=== PATIENT | female | born 1985 | race Caucasian/White ===

== ENCOUNTER 2021-04-08 17:07 | Emergency (ER) | payer MEDICAID ==
[~2021-04-08] VITALS: Ht 165.1 cm; Wt 53.5 kg
[2021-04-08 17:58] LABS: MEAN CORPUSCULAR HEMOGLOBIN 30.6 uug (24.7-32.8); MEAN CORPUSCULAR VOLUME 90.8 fL (75.5-95.3); PLATELET COUNT (AUTO) 155 K/uL (179-408)
--- NOTE | 2021-04-08 18:06 | NUR ---
Patient was seen by . Labs drawn by other RN and sent to lab
--- NOTE | 2021-04-08 20:26 | NUR ---
Patient discharged to home in stable condition. Written and verbal after care instructions given. Patient verbalizes understanding of instructions. Stressed follow up or return to ER for worsening s/s. Patient ambulated fr the ER with steady gait. All belongings with patient.
[2021-04-08 20:27] VITALS: BP 112/77
== END 2021-04-08 20:28 | disposition home or self-care (01) ==
LOC: ER 17:09
DX: N93.8 Other specified abnormal uterine and vaginal bleeding (principal); N88.8 Other specified noninflammatory disorders of cervix uteri; D69.6 Thrombocytopenia, unspecified
CPT/HCPCS: 36415; 76856; 85025; 86850; 86900; 86901; A4663

== ENCOUNTER 2022-08-04 12:42 | Emergency (ER) | payer MEDICAID ==
[~2022-08-04] VITALS: Ht 162.6 cm; Wt 52.6 kg
--- NOTE | 2022-08-04 12:56 | NUR ---
AT BEDSIDE FOR MSE
[2022-08-04 13:24] LABS: *BILIRUBIN,URIN NEGATIVE (NEGATIVE); *BLOOD, URINE 2+ (NEGATIVE); *CLARITY,URINE CLEAR (CLEAR); *COLOR,URINE YELLOW (YELLOW); *KETONES,URINE NEGATIVE (NEGATIVE); *UROBILINOGEN,URINE 0.2 E.U./dl (NORMAL); LEUKOCYTE ESTERASE ,URINE NEGATIVE (NEGATIVE); NITRITE, URINE NEGATIVE (NEGATIVE); UGLUCOSE NEGATIVE (NEGATIVE)
[2022-08-04 13:35] LABS: BACTERIA,URINE FEW /HPF (NONE SEEN); MUCUS,URINE FEW /LPF (0-FEW); SQUAMOUS EPITHELIAL CELL,UR FEW /HPF (NONE SEEN); WBC,URINE 0-3 /HPF (0-3)
[2022-08-04 13:41] LABS: *URINE HCG, QUAL NEGATIVE (NEGATIVE)
--- NOTE | 2022-08-04 14:24 | NUR ---
Patient discharged to home in stable condition. Written and verbal after care instructions given. Patient verbalizes understanding of instructions. Stressed follow up or return to ER for worsening s/s.
== END 2022-08-04 14:24 | disposition home or self-care (01) ==
LOC: ER 12:42
DX: J10.1 Influenza due to other identified influenza virus with other respiratory manifestations (principal); Z20.822 Contact with and (suspected) exposure to COVID-19; Z88.8 Allergy status to other drugs, medicaments and biological substances
CPT/HCPCS: 71045; 84703; A4663

== ENCOUNTER 2023-03-13 20:41 | Emergency (ER) | payer MEDICAID ==
[~2023-03-13] VITALS: Ht 162.6 cm; Wt 54.4 kg
[2023-03-13] MEDS ORDERED: ACETAMINOPHEN ES 500 MG TABLET PO ONE (21:15)
[2023-03-13] MEDS ORDERED: CYCL10TA9 PO (21:16)
[2023-03-13] MEDS ORDERED: HYDR-3980 PO (21:16)
[2023-03-13] MEDS ORDERED: ONDA4TAB5 PO (21:16)
[2023-03-13] MEDS ORDERED: ACETAMINOPHEN ES 500 MG TABLET ONE (21:16)
[2023-03-13 21:34] VITALS: BP 102/75; TEMP 98.5; O2SAT 99
== END 2023-03-13 21:35 | disposition home or self-care (01) ==
LOC: ER 20:45
DX: S39.012A Strain of muscle, fascia and tendon of lower back, initial encounter (principal); Z88.8 Allergy status to other drugs, medicaments and biological substances; Z79.899 Other long term (current) drug therapy; V49.9XXA Car occupant (driver) (passenger) injured in unspecified traffic accident, initial encounter; Y93.89 Activity, other specified; Y92.410 Unspecified street and highway as the place of occurrence of the external cause; Y99.8 Other external cause status
CPT/HCPCS: A4606; A4663; A9150